=== PATIENT | female | born 1940 | race Caucasian/White ===

== ENCOUNTER 2020-10-21 18:08 | Observation (INO) ==
[2020-10-21 19:26] LABS: Basophils # 0.1 K/mcL (0.0-0.2); Basophils % 0.8 %; Eosinophils % 0.3 %; Hematocrit 37.6 % (35.3-44.9); Hemoglobin 11.8 g/dL (11.5-15.4); Immature Granulocytes % 0.5 % (0-4); Lymphocytes # 0.7 K/mcL (0.6-4.6); Lymphocytes % 10.8 %; Mean Corpuscular HGB Conc 31.4 g/dL (31.6-35.5); Mean Corpuscular Hemoglobin 29.6 pg (28.0-33.3); Mean Corpuscular Volume 94.5 fL (83.0-100.0); Mean Platelet Volume 10.1 fL (9.4-12.4); Monocytes # 0.4 K/mcL (0.0-1.3); Monocytes % 5.9 %; Neutrophils # 5.3 K/mcL (1.6-8.9); Platelet Count 328 K/mcL (140-400); Red Blood Count 3.98 M/mcL (3.82-4.97); Red Cell Distribution Width 16.7 % (11.5-14.5); Segmented Neutrophils % 81.7 %; White Blood Count 6.5 K/mcL (4.3-11.1)
[2020-10-21 19:34] LABS: INR 3.4; Prothrombin Time 37.5 Seconds (9.4-12.1)
[2020-10-21 19:45] LABS: Alanine Aminotransferase 164 Units/L (7-52); Albumin/Globulin Ratio 1.5 (1.1-2.2); Alkaline Phosphatase 101 Units/L (34-104); Aspartate Amino Transferase 156 Units/L (13-39); Bilirubin,Direct 0.6 mg/dL (0.0-0.2); Bilirubin,Indirect 1.4 mg/dL (0.0-1.0); Globulin 2.7 g/dL (2.4-3.5); Lipase 20 Units/L (11-82); Total Protein 6.7 g/dL (6.4-8.9)
[2020-10-21 19:46] LABS: Calcium 9.3 mg/dL (8.6-10.3); Potassium 4.7 mEq/L (3.5-5.1); Troponin I < 0.03 ng/mL (< 0.04)
[2020-10-21 20:49] LABS: Bilirubin,Urine Small (Negative); Blood,Urine Small (Negative); Clarity,Urine Clear (Clear); Color,Urine Yellow (Yellow); Glucose,Urine (UA) 100 mg/dL (Normal); Ketones,Urine Trace mg/dL (Negative); Leukocyte Esterase,Urine Negative (Negative); Nitrite,Urine Negative (Negative); Protein,Urine >=300 mg/dL (Neg-Trace); Specific Gravity,Urine >= 1.030 (1.010-1.025); Urobilinogen,Urine Normal (Normal)
[2020-10-21 21:08] LABS: Bacteria,Urine Moderate per hpf (None-Few); Hyaline Casts,Urine Moderate per lpf (None Seen); Mucus,Urine Few per lpf (None-Few); RBC,Urine 0-3 per hpf (0-3); Squamous Epithelial Cell,Urine Few per hpf (None-Few); WBC,Urine 0-3 per hpf (0-3)
[2020-10-21] MEDS ORDERED: 0.9 % Sodium Chloride 500 ML IVC ONE (21:34)
[2020-10-22] MEDS ORDERED: Naloxone 0.4 MG/ML INJ IVP PRN (00:05)
[2020-10-22] MEDS: 0.9 % Sodium Chloride 1,000 ML IVC SCH ×2 (02:03→14:35)
[2020-10-22 07:40] LABS: Calcium 8.8 mg/dL (8.6-10.3); Potassium 4.5 mEq/L (3.5-5.1)
[2020-10-22] MEDS ORDERED: Warfarin perPT PO PRN (07:47)
[2020-10-22] MEDS: Gabapentin 300 MG CAPSULE PO SCH ×3 (09:27→21:19)
[2020-10-22] MEDS: *HR* GlipiZIDE XL (24 HR) 10 MG TABLET PO SCH (09:27)
[2020-10-22] MEDS: Aspirin Enteric Coated 81 MG Tablet PO SCH (09:27)
[2020-10-22] MEDS ORDERED: D5% in Water 1,000 ML IVC PRN (11:30)
[2020-10-22] MEDS ORDERED: *HR* Dextrose 50 % in Water (Vial) 50 ML VIAL IVP PRN (11:30)
[2020-10-22] MEDS ORDERED: Dextrose Gel 15 GM/37.5 ML TUBE PO PRN ×2 (11:30)
[2020-10-22] MEDS: Insulin LISPRO 300 UNITS/3 ML VIAL SUBQ SCH ×2 (12:26→17:13)
[2020-10-22 17:29] LABS: Estimated Average Glucose 243 mg/dl; Hemoglobin A1C 10.1 %
[2020-10-22] MEDS ORDERED: *HR* Warfarin 5 MG TABLET PO SCH (18:00)
[2020-10-22] MEDS ORDERED: cefTRIAXone 1,000 MG in 0.9 % Sodium Chloride Mini Bag 100 ML IVPB SCH (22:00)
[2020-10-23 06:54] LABS: Basophils # 0.1 K/mcL (0.0-0.2); Basophils % 0.7 %; Eosinophils # 0.1 K/mcL (0.0-0.6); Eosinophils % 1.9 %; Hematocrit 34.5 % (35.3-44.9); Hemoglobin 10.6 g/dL (11.5-15.4); Immature Granulocytes % 0.7 % (0-4); Lymphocytes % 14.1 %; Mean Corpuscular HGB Conc 30.7 g/dL (31.6-35.5); Mean Corpuscular Hemoglobin 29.4 pg (28.0-33.3); Mean Corpuscular Volume 95.6 fL (83.0-100.0); Mean Platelet Volume 10.4 fL (9.4-12.4); Monocytes # 0.7 K/mcL (0.0-1.3); Monocytes % 9.7 %; Nucleated Red Blood Cells 0.4 /100 WBC (0); Platelet Count 252 K/mcL (140-400); Red Blood Count 3.61 M/mcL (3.82-4.97); Red Cell Distribution Width 17.2 % (11.5-14.5); Segmented Neutrophils % 72.9 %; White Blood Count 6.8 K/mcL (4.3-11.1)
[2020-10-23 07:07] LABS: INR 3.6; Prothrombin Time 39.7 Seconds (9.4-12.1)
[2020-10-23 07:19] LABS: Calcium 8.1 mg/dL (8.6-10.3); Potassium 3.8 mEq/L (3.5-5.1)
[2020-10-23] MEDS: *HR* GlipiZIDE XL (24 HR) 10 MG TABLET PO SCH (09:36)
[2020-10-23] MEDS: Gabapentin 300 MG CAPSULE PO SCH ×3 (09:36→21:04)
[2020-10-23] MEDS: Aspirin Enteric Coated 81 MG Tablet PO SCH (09:36)
[2020-10-23] MEDS: Insulin LISPRO 300 UNITS/3 ML VIAL SUBQ SCH ×3 (09:37→16:46)
[2020-10-23] MEDS: carvediloL 6.25 MG TABLET PO SCH (16:44)
[2020-10-24 07:22] VITALS: BP 135/74
[2020-10-24 07:30] LABS: Hematocrit 36.2 % (35.3-44.9); Hemoglobin 10.9 g/dL (11.5-15.4); Mean Corpuscular HGB Conc 30.1 g/dL (31.6-35.5); Mean Corpuscular Hemoglobin 29.1 pg (28.0-33.3); Mean Corpuscular Volume 96.8 fL (83.0-100.0); Mean Platelet Volume 10.2 fL (9.4-12.4); Platelet Count 248 K/mcL (140-400); Red Blood Count 3.74 M/mcL (3.82-4.97); Red Cell Distribution Width 17.8 % (11.5-14.5); White Blood Count 6.8 K/mcL (4.3-11.1)
[2020-10-24 07:39] LABS: INR 2.2; Prothrombin Time 25.3 Seconds (9.4-12.1)
[2020-10-24 07:51] LABS: Calcium 8.3 mg/dL (8.6-10.3)
[2020-10-24] MEDS: Insulin LISPRO 300 UNITS/3 ML VIAL SUBQ SCH ×2 (08:12→13:09)
[2020-10-24] MEDS: Aspirin Enteric Coated 81 MG Tablet PO SCH (08:30)
[2020-10-24] MEDS: carvediloL 6.25 MG TABLET PO SCH (08:30)
[2020-10-24] MEDS: Gabapentin 300 MG CAPSULE PO SCH (08:30)
[2020-10-24] MEDS: *HR* GlipiZIDE XL (24 HR) 10 MG TABLET PO SCH (08:30)
[2020-10-24] MEDS ORDERED: *HR* Warfarin 2.5 MG TABLET PO ONE (18:00)
== END 2020-10-24 16:30 | disposition home health service (06) ==
LOC: INPPIK 18:08 → EMEROOPIK 18:08 → SUATTDRO 22:29 → MERGE 22:29 → INPPIK 23:17
PROVIDERS: ADMIT Internal Medicine; ATTEND Family Medicine